=== PATIENT | male | born 1980 | race Caucasian/White ===

== ENCOUNTER 2022-01-13 21:03 | Emergency (ER) | payer OTHER ==
[~2022-01-13] VITALS: Ht 175.3 cm; Wt 77.1 kg
--- NOTE | 2022-01-13 21:16 | NUR ---
BIBSELF C.O SI WITH NO PLAN -HI +DEPRESSION X3 DAYS. REQUESTING [facility] A/OX4. TOLERATING R/A WELL WITH NO RESP DISTRESS. PT CHANGED IN GOWN, BELONGINGS COLLECTED AND PLACED IN LOCKER. AMBULATORY WITH STEADY GAIT. SAFETY MEASURES IN PLACE. SITTER AT PT'S BEDSIDE
--- NOTE | 2022-01-13 21:22 | NUR ---
COVID ANTIGEN SWAB COLLECTED AND SENT TO LAB
--- NOTE | 2022-01-13 21:22 | NUR ---
URINE COLLECTED AND SENT TO LAB
[2022-01-13 22:13] LABS: BASOPHILS % (AUTO) 0.4 % (0.0-2.0); EOSINOPHILS % (AUTO) 0.3 % (0.0-6.0); HEMATOCRIT 41 % (39-51); LYMPHOCYTES # (AUTO) 1.2 K/uL (0.8-4.8); LYMPHOCYTES % (AUTO) 11.8 % (20.0-44.0); MEAN CORPUSCULAR HGB CONC 34 g/dl (31.0-36.0); MEAN CORPUSCULAR VOLUME 89 fL (80-96); MONOCYTES # (AUTO) 0.7 K/uL (0.1-1.30); MONOCYTES % (AUTO) 6.9 % (2.0-12.0); NEUTROPHILS # (AUTO) 8.3 K/uL (1.8-8.9); NEUTROPHILS % (AUTO) 80.6 % (43.0-81.0); PLATELET COUNT (AUTO) 247 K/uL (150-450); RED BLOOD CELL COUNT(AUTO) 4.58 MIL/uL (4.5-6.0); WHITE BLOOD COUNT (AUTO) 10.3 K/uL (4.3-11.0)
[2022-01-13 22:35] LABS: ALANINE AMINOTRANSFERASE 18 U/L (12-78); ALBUMIN 3.8 g/dL (3.4-5.0); ALCOHOL, BLOOD < 3 mg/dL (0-0); ALKALINE PHOSPHATASE 80 U/L (46-116); ASPARTATE AMINOTRANSFERASE 31 U/L (15-37); BILIRUBIN,DIRECT 0.3 mg/dL (0.0-0.2); BILIRUBIN,TOTAL 0.9 mg/dL (0.2-1.0); CALCIUM, SERUM 9.4 mg/dL (8.5-10.1); CARBON DIOXIDE 23 mmol/L (21-32); CHLORIDE 95 mmol/L (98-107); CREATININE 1.4 mg/dL (0.6-1.3); GLUCOSE 87 mg/dL (74-106); POTASSIUM 4.5 mmol/L (3.5-5.1); SODIUM SERUM 133 mmol/L (136-145); TOTAL PROTEIN, SERUM 7.2 g/dL (6.4-8.2); UREA NITROGEN, BLOOD 24 mg/dL (7-18)
[2022-01-13 22:41] LABS: ACETAMINOPHEN 0 ug/ml (10-30)
[2022-01-13 22:48] LABS: BILIRUBIN,URINE SMALL (NEGATIVE); COLOR,URINE YELLOW (YELLOW); LEUKOCYTE ESTERASE ,URINE NEGATIVE (NEGATIVE); NITRITE, URINE NEGATIVE (NEGATIVE); PROTEIN,URINE NEGATIVE (NEGATIVE); UGLUCOSE NEGATIVE (NEGATIVE); UROBILINOGEN,URINE 0.2 EU/dL (0.2)
[2022-01-13 23:01] LABS: BACTERIA,URINE None seen /HPF (None Seen); HYALINE CASTS, URINE Rare /LPF (None Seen); SQUAMOUS EPITHELIAL CELL,UR Few /HPF (None Seen); WBC,URINE 0-2 /HPF (0-3)
--- NOTE | 2022-01-13 23:32 | NUR ---
FAXED CLINICALS TO [facility]
--- NOTE | 2022-01-14 08:42 | NUR ---
[phone] FOR REPORT ETA PENDING FOR TRANSPORT.
--- NOTE | 2022-01-14 08:48 | NUR ---
[facility] CALLED, ETA 60 MIN PER [facility].
--- NOTE | 2022-01-14 09:58 | NUR ---
call for report, went straightto voice mail.
--- NOTE | 2022-01-14 10:01 | NUR ---
EMT AT BEDSIDE TO PICKUP PT
[2022-01-14 10:02] VITALS: BP 130/75
--- NOTE | 2022-01-14 10:05 | NUR ---
PT TRANSFERRED TO [facility]IA [facility], ACCOMPANIED BY 2 EMT, IN STABLE CONDITION. MEDICALLY-CLEARED FOR [facility].
== END 2022-01-14 10:05 ==
LOC: ER 21:05
DX: R45.851 Suicidal ideations (principal); F20.9 Schizophrenia, unspecified; Z59.01 Sheltered homelessness; Z91.14 Patient's other noncompliance with medication regimen
CPT/HCPCS: 99285; 85025; 80048; 80076; 81001; 36415; 87426; 80143; 80320; 80307; C9803; G0480